=== PATIENT | male | born 1980 | race Caucasian/White ===

== ENCOUNTER 2025-02-16 18:43 | Emergency (ER) | payer BC ==
[2025-02-16] MEDS: Ketorolac 60 MG/2 ML SDV IM ONE (20:39)
== END 2025-02-16 20:43 | disposition home or self-care (01) ==
LOC: JD.ED 18:43
DX: S63.502A Unspecified sprain of left wrist, initial encounter (principal); Z79.899 Other long term (current) drug therapy; F17.200 Nicotine dependence, unspecified, uncomplicated; W00.0XXA Fall on same level due to ice and snow, initial encounter
CPT/HCPCS: 73110; 96372; 99283; J1885